=== PATIENT | male | born 1995 | race African-American/Black ===

== ENCOUNTER 2017-08-08 20:42 | Emergency (ER) | payer OTHER ==
[~2017-08-08] VITALS: Ht 180.3 cm; Wt 114.8 kg
[~2017-08-08 20:42] MED LIST: ACETAMINOPHEN-1 EAC1 PO; CARAFATE 1 GM TA1 G1 PO; CELEXA 10 MG TA10 M1; DEPAKOTE; FLAGYL500 MG PO; FLEXERIL PO; GABAPENTIN; HYDROCODONE-AP1 EAC6 PO; HYDROXYZINE; IBUPROFEN 800800 M1 PO; KLONOPIN1 MG PO; LEXAPRO 10 MG T10 MG PO; LITHIUM CARBON300 M6; LORAZEPAM 0.50.5 MG PO; LUNESTA; LUNESTA1 MG PO; NORCO 5-325 TA1 EACH PO; ONDANSETRON HCL4 M2 PO; PAXIL40 MG PO; PHENERGAN 25 MG25 M1 PO; PREVACID; REMERON30 M1 PO; SEROQUEL 50 MG50 MG; SINGULAIR 10 MG10 M1; SINGULAIR 10 MG10 M1 PO; VISTARIL 25 MG25 M1 PO; XANAX XR1 MG PO; XANAX1 MG; ZOFRAN ODT4 MG PO; ZOLOFT50 MG PO; ZYRTEC10 M4 PO
[2017-08-08 21:10] LABS: ABSOLUTE BASOPHILS 0.1 thou/uL (0.0-0.2); ABSOLUTE EOSINOPHILS 0.4 thou/uL (0.0-0.7); ABSOLUTE LYMPHOCYTES 2.6 thou/uL (0.8-5.3); ABSOLUTE MONOCYTES 0.5 thou/uL (0.0-1.2); ABSOLUTE NEUTROPHILS 6.8 thou/uL (1.6-8.1); BASOPHILS 0.7 %; EOSINOPHILS 3.7 %; HEMATOCRIT 44.5 % (42.0-52.0); HEMOGLOBIN 14.9 gm/dL (14.0-18.0); LYMPHOCYTES 24.7 %; MCH 27.3 pg (26.0-34.0); MCHC 33.4 g/dL (28.0-37.0); MCV 81.7 fL (80.0-100.0); MONOCYTES 5.1 %; MPV 8.1 fl. (7.2-11.1); NUCLEATED RBCS 0 /100WBC; PLATELET COUNT* 299 thou/uL (150-400); POLYS 65.8 %; RBC 5.45 mil/uL (4.50-6.00); RDW-CV 13.8 % (10.5-14.5); WBC 10.4 thou/uL (4.0-11.0)
[2017-08-08 21:15] LABS: URINE BILIRUBIN NEGATIVE (Negative); URINE BLOOD NEGATIVE (Negative); URINE CLARITY CLEAR; URINE COLOR YELLOW; URINE GLUCOSE-RANDOM NEGATIVE (Negative); URINE KETONES NEGATIVE (Negative); URINE LEUKOCYTES-REFLEX NEGATIVE (Negative); URINE NITRITE-REFLEX NEGATIVE (Negative); URINE PROTEIN NEGATIVE (Negative); URINE SPECIFIC GRAVITY >= 1.030 (1.005-1.030); URINE UROBILINOGEN 0.2 E.U./dl (0.2-1.0)
[2017-08-08 21:18] LABS: CALCIUM 8.9 mg/dL (8.5-10.1); CREATININE 1.4 mg/dL (0.6-1.3); POTASSIUM 3.8 mmol/L (3.5-5.1)
[2017-08-08 21:23] LABS: ALBUMIN 3.8 g/dL (3.4-5.0); TOTAL BILIRUBIN 0.3 mg/dL (<0.1-1.0); TOTAL PROTEIN 8.1 g/dL (6.4-8.2)
[2017-08-08 21:23] LABS: AMP/METHAMP Negative (Negative); BARBITURATES Negative (Negative); BENZODIAZEPINES Negative (Negative); COCAINE Negative (Negative); METHADONE Negative (Negative); OPIATES Negative (Negative); PCP Negative (Negative); THC Negative (Negative)
[2017-08-08 21:34] LABS: ACETAMINOPHEN < 2 ug/mL (10-30); ALCOHOL < 10 mg/dL (<10); SALICYLATE < 2.8 mg/dL (2.8-20.0)
[2017-08-08] MEDS ORDERED: LEXAPRO 10 MG T10 M1 PO (22:19)
[2017-08-08] MEDS ORDERED: BUSPIRONE HCL5 GM PO (22:19)
[2017-08-08 23:43] VITALS: BP 123/81
== END 2017-08-08 23:55 | disposition home or self-care (01) ==
LOC: M.ERS 20:42
PROVIDERS: Emergency Medicine
DX: F32.9 Major depressive disorder, single episode, unspecified (principal); F41.9 Anxiety disorder, unspecified; F90.9 Attention-deficit hyperactivity disorder, unspecified type; F43.10 Post-traumatic stress disorder, unspecified; F17.210 Nicotine dependence, cigarettes, uncomplicated; Z88.6 Allergy status to analgesic agent; Z88.8 Allergy status to other drugs, medicaments and biological substances

== ENCOUNTER 2017-09-17 00:46 | Emergency (ER) | payer OTHER ==
[~2017-09-17] VITALS: Ht 180.3 cm; Wt 117.5 kg
[~2017-09-17 00:46] MED LIST changes: +BUSPIRONE HCL5 GM PO; +LEXAPRO 10 MG T10 M1 PO
[2017-09-17 00:55] VITALS: BP 126/91
[2017-09-17] MEDS ORDERED: CLONAZEPAM 1 MG1 M1 (00:55)
[2017-09-17] MEDS ORDERED: NORCO 5-325 TA1 EACH PO (01:06)
== END 2017-09-17 01:12 | disposition home or self-care (01) ==
LOC: M.ERS 00:46
DX: K08.89 Other specified disorders of teeth and supporting structures (principal); F31.9 Bipolar disorder, unspecified; F90.9 Attention-deficit hyperactivity disorder, unspecified type; F17.210 Nicotine dependence, cigarettes, uncomplicated; Z88.8 Allergy status to other drugs, medicaments and biological substances; Z88.6 Allergy status to analgesic agent

== ENCOUNTER 2017-12-10 21:34 | Emergency (ER) | payer OTHER ==
[~2017-12-10] VITALS: Ht 180.3 cm; Wt 117.5 kg
[~2017-12-10 21:34] MED LIST changes: +CLONAZEPAM 1 MG1 M1
[2017-12-10] MEDS ORDERED: KLONOPIN (21:40)
[2017-12-10] MEDS ORDERED: CITALOPRAM (21:41)
[2017-12-10 21:42] VITALS: BP 145/99
[2017-12-10] MEDS ORDERED: BACTRIM DS TAB1 EACH PO (21:49)
[2017-12-11] MEDS ORDERED: CYCLOBENZAPRINE5 MG PO (13:47)
[2017-12-11] MEDS ORDERED: DICLOFENAC SOD50 M1 PO (13:47)
== END 2017-12-10 21:55 | disposition home or self-care (01) ==
LOC: M.ERS 21:34
DX: S80.862A Insect bite (nonvenomous), left lower leg, initial encounter (principal); L03.116 Cellulitis of left lower limb; F41.9 Anxiety disorder, unspecified; F31.9 Bipolar disorder, unspecified; F90.9 Attention-deficit hyperactivity disorder, unspecified type; M54.30 Sciatica, unspecified side; F17.210 Nicotine dependence, cigarettes, uncomplicated; Z88.8 Allergy status to other drugs, medicaments and biological substances; W57.XXXA Bitten or stung by nonvenomous insect and other nonvenomous arthropods, initial encounter; Y93.89 Activity, other specified; Y92.89 Other specified places as the place of occurrence of the external cause; Y99.8 Other external cause status

== ENCOUNTER 2017-12-11 13:39 | Emergency (ER) | payer OTHER ==
[~2017-12-11] VITALS: Ht 180.3 cm; Wt 117.5 kg
[~2017-12-11 13:39] MED LIST changes: +BACTRIM DS TAB1 EACH PO; +CITALOPRAM; +KLONOPIN
[2017-12-11] MEDS ORDERED: DICLOFENAC SOD50 M1 PO (13:47)
[2017-12-11] MEDS ORDERED: CYCLOBENZAPRINE5 MG PO (13:47)
[2017-12-11 14:14] VITALS: BP 139/85
== END 2017-12-11 14:14 | disposition home or self-care (01) ==
LOC: M.ERS 13:39
DX: L03.116 Cellulitis of left lower limb (principal); F41.9 Anxiety disorder, unspecified; F31.9 Bipolar disorder, unspecified; M54.30 Sciatica, unspecified side; G89.29 Other chronic pain; F17.210 Nicotine dependence, cigarettes, uncomplicated; Z88.8 Allergy status to other drugs, medicaments and biological substances

== ENCOUNTER 2018-02-26 21:52 | Emergency (ER) | payer OTHER ==
[~2018-02-26] VITALS: Ht 180.3 cm; Wt 117.9 kg
[~2018-02-26 21:52] MED LIST changes: +CYCLOBENZAPRINE5 MG PO; +DICLOFENAC SOD50 M1 PO
[2018-02-26] MEDS ORDERED: PROMETH-CODEIN 65 ML PO (23:55)
[2018-02-26] MEDS ORDERED: MEDROLDOSEPACK PO (23:55)
[2018-02-26] MEDS ORDERED: ZPAK PO (23:55)
[2018-02-26] MEDS ORDERED: VENTOLIN HFA 1818 GM INH (23:55)
[2018-02-27] MEDS ORDERED: ONDANSETRON HCL4 M2 PO (00:01)
[2018-02-27] MEDS ORDERED: NYSTATIN 100,0015 G1 TOP (00:10)
[2018-02-27 00:32] VITALS: BP 145/93
== END 2018-02-27 00:33 | disposition home or self-care (01) ==
LOC: M.ERS 21:52
DX: J20.9 Acute bronchitis, unspecified (principal); B37.2 Candidiasis of skin and nail; F41.9 Anxiety disorder, unspecified; F31.9 Bipolar disorder, unspecified; G89.29 Other chronic pain; F17.210 Nicotine dependence, cigarettes, uncomplicated; F90.9 Attention-deficit hyperactivity disorder, unspecified type; Z88.6 Allergy status to analgesic agent; Z88.8 Allergy status to other drugs, medicaments and biological substances

== ENCOUNTER 2018-03-29 22:40 | Emergency (ER) | payer OTHER ==
[~2018-03-29] VITALS: Ht 180.3 cm; Wt 123.8 kg
[~2018-03-29 22:40] MED LIST changes: +MEDROLDOSEPACK PO; +NYSTATIN 100,0015 G1 TOP; +PROMETH-CODEIN 65 ML PO; +VENTOLIN HFA 1818 GM INH; +ZPAK PO
[2018-03-29] MEDS ORDERED: CELEXA20 MG (22:51)
[2018-03-29] MEDS ORDERED: CLONAZEPAM 1 MG1 M1 (22:52)
[2018-03-29 23:24] LABS: ABSOLUTE EOSINOPHILS 0.3 thou/uL (0.0-0.7); ABSOLUTE MONOCYTES 0.5 thou/uL (0.0-1.2); BASOPHILS 0.5 %; EOSINOPHILS 3.3 %; HEMATOCRIT 44.6 % (42.0-52.0); HEMOGLOBIN 14.8 gm/dL (14.0-18.0); LYMPHOCYTES 30.6 %; MCH 27.2 pg (26.0-34.0); MCHC 33.1 g/dL (28.0-37.0); MCV 82.2 fL (80.0-100.0); MONOCYTES 5.2 %; MPV 8.5 fl. (7.2-11.1); NUCLEATED RBCS 0 /100WBC; PLATELET COUNT* 307 thou/uL (150-400); POLYS 60.4 %; RBC 5.43 mil/uL (4.50-6.00)
[2018-03-29 23:38] LABS: ANION GAP 9 mmol/L (7-16); BUN 11 mg/dL (7-18); CALCIUM 8.8 mg/dL (8.5-10.1); CHLORIDE 104 mmol/L (98-107); CO2 25 mmol/L (21-32); CREATININE 1.1 mg/dL (0.6-1.3); GLUCOSE 139 mg/dL (70-99); POTASSIUM 3.5 mmol/L (3.5-5.1); SODIUM 138 mmol/L (136-145)
[2018-03-29 23:48] LABS: ALBUMIN 3.7 g/dL (3.4-5.0); ALKALINE PHOSPHATASE 102 U/L (46-116); SGOT 11 U/L (15-37); SGPT 20 U/L (30-65); TOTAL BILIRUBIN 0.2 mg/dL (<0.1-1.0); TOTAL PROTEIN 8.1 g/dL (6.4-8.2); TROPONIN-I LEVEL <0.06 ng/mL (<0.06)
[2018-03-30] MEDS ORDERED: PREDNISONE 20 M20 MG PO (00:09)
[2018-03-30] MEDS ORDERED: DICLOFENAC SOD50 M1 PO (00:15)
[2018-03-30 00:59] VITALS: BP 126/83
--- NOTE | 2018-03-31 11:34 | EKG ---
[place] [address] ELECTROCARDIOGRAM REPORT Name: BILLKEYLA Elfego Room: [facility] ([place], [place])Callie#: [id number] Admission: 03/29/18 Attend Phys: Discharge: 03/30/18 Date of : [birth year] Report #: [id number] THIS REPORT FOR: //name// [facility] ED Test Date: 2018-03-29 Test Time: 22:49:24 Pat Name: KEYLA KHAN Department: Room: Gender: M Artists' Model: DEJON : 1995 Requested By: Jaquan Boyer Order Number: [id number] Charli MD: Cisco Ang Measurements Intervals [place] Rate: 97 P: 70 MT: 146 QRS: 33 QRSD: 88 T: 258 QT: 315 QTc: 400 Interpretive Statements Sinus rhythm Nonspecific T abnormalities, diffuse leads Baseline wander in lead(s) V1 Compared to ECG 01/08/2015 20:39:40 No significant changes Electronically Signed On 03-31-2018 11:34:06 SLIP DUMPER by Cisco Ang [email or web address] <ELECTRONICALLY SIGNED> By: Cisco Ang MD, [facility] 03/31/18 1134 2249 224 Cisco Ang MD, FACC /EPI
== END 2018-03-30 01:01 | disposition home or self-care (01) ==
LOC: M.ERS 22:40
PROVIDERS: Physician Assistant
DX: J98.8 Other specified respiratory disorders (principal); B97.89 Other viral agents as the cause of diseases classified elsewhere; F41.9 Anxiety disorder, unspecified; F31.9 Bipolar disorder, unspecified; F90.9 Attention-deficit hyperactivity disorder, unspecified type; G89.29 Other chronic pain; F17.210 Nicotine dependence, cigarettes, uncomplicated; Z88.6 Allergy status to analgesic agent; Z88.8 Allergy status to other drugs, medicaments and biological substances

== ENCOUNTER 2018-04-29 11:30 | Emergency (ER) | payer OTHER ==
[~2018-04-29] VITALS: Ht 180.3 cm; Wt 123.8 kg
[~2018-04-29 11:30] MED LIST changes: +CELEXA20 MG PO; +PREDNISONE 20 M20 MG PO
[2018-04-29] MEDS ORDERED: CLONAZEPAM 1 MG1 M1 PO (11:54)
[2018-04-29] MEDS ORDERED: BUSPIRONE HCL10 MG PO (11:55)
[2018-04-29] MEDS ORDERED: TYLENOL EXTRA500 MG PO (11:55)
[2018-04-29 12:22] LABS: INFLUENZA A ANTIGEN None Detected (None Detect); INFLUENZA B ANTIGEN None Detected (None Detect)
[2018-04-29] MEDS ORDERED: IBUPROFEN 800800 M1 PO (12:29)
[2018-04-29] MEDS ORDERED: PROMETHAZINE V473 ML PO (12:29)
[2018-04-29] MEDS ORDERED: ZPAK PO (12:29)
[2018-04-29] MEDS ORDERED: ACETAMINOPHEN-1 EAC1 PO (12:29)
[2018-04-29 12:42] VITALS: BP 133/79
== END 2018-04-29 12:43 | disposition home or self-care (01) ==
LOC: M.ERS 11:30
PROVIDERS: Physician Assistant
DX: J20.9 Acute bronchitis, unspecified (principal); F41.9 Anxiety disorder, unspecified; F90.9 Attention-deficit hyperactivity disorder, unspecified type; F31.9 Bipolar disorder, unspecified; G89.29 Other chronic pain; F17.210 Nicotine dependence, cigarettes, uncomplicated; Z88.6 Allergy status to analgesic agent; Z88.8 Allergy status to other drugs, medicaments and biological substances

== ENCOUNTER 2018-06-04 23:25 | Emergency (ER) | payer OTHER ==
[~2018-06-04] VITALS: Ht 180.3 cm; Wt 124.7 kg
[~2018-06-04 23:25] MED LIST changes: +BUSPIRONE HCL10 MG PO; +CLONAZEPAM 1 MG1 M1 PO; +PROMETHAZINE V473 ML PO; +TYLENOL EXTRA500 MG PO
[2018-06-04] MEDS ORDERED: ALBUTEROL (23:38)
[2018-06-04] MEDS ORDERED: FLEXERIL PO (23:39)
[2018-06-04] MEDS ORDERED: ZANAFLEX4 MG PO (23:40)
[2018-06-04] MEDS ORDERED: AMOXICILLIN 50500 MG PO (23:57)
[2018-06-04] MEDS ORDERED: TESSALON PERLE100 MG PO (23:57)
[2018-06-04] MEDS ORDERED: PREDNISONE 20 M20 M1 PO (23:59)
[2018-06-05 00:19] VITALS: BP 119/69
== END 2018-06-05 00:19 | disposition home or self-care (01) ==
LOC: M.ERS 23:25
DX: J06.9 Acute upper respiratory infection, unspecified (principal); F41.9 Anxiety disorder, unspecified; F31.9 Bipolar disorder, unspecified; F90.9 Attention-deficit hyperactivity disorder, unspecified type; G89.29 Other chronic pain; F17.210 Nicotine dependence, cigarettes, uncomplicated; Z88.6 Allergy status to analgesic agent; Z88.8 Allergy status to other drugs, medicaments and biological substances

== ENCOUNTER 2018-10-30 22:27 | Emergency (ER) | payer OTHER ==
[~2018-10-30] VITALS: Ht 180.3 cm; Wt 125.2 kg
[~2018-10-30 22:27] MED LIST changes: +ALBUTEROL; +AMOXICILLIN 50500 MG PO; +BENZONATATE200 MG PO; +PREDNISONE 10 M10 M1 PO; +PREDNISONE 20 M20 M1 PO; +TAMIFLU75 MG PO; +TESSALON PERLE100 MG PO; +ZANAFLEX4 MG PO
[2018-10-30] MEDS ORDERED: ZANAFLEX4 MG PO (22:41)
[2018-10-30 23:57] LABS: ABSOLUTE EOSINOPHILS 0.3 thou/uL (0.0-0.7); ABSOLUTE LYMPHOCYTES 2.6 thou/uL (0.8-5.3); ABSOLUTE MONOCYTES 0.5 thou/uL (0.0-1.2); ABSOLUTE NEUTROPHILS 5.7 thou/uL (1.6-8.1); BASOPHILS 0.5 %; EOSINOPHILS 3.5 %; HEMATOCRIT 44.7 % (42.0-52.0); HEMOGLOBIN 14.8 gm/dL (14.0-18.0); LYMPHOCYTES 28.6 %; MCHC 33.2 g/dL (28.0-37.0); MCV 81.3 fL (80.0-100.0); MONOCYTES 5.9 %; NUCLEATED RBCS 0 /100WBC; PLATELET COUNT* 289 thou/uL (150-400); POLYS 61.5 %; RDW-CV 13.8 % (10.5-14.5); WBC 9.3 thou/uL (4.0-11.0)
[2018-10-31 00:01] LABS: POTASSIUM 3.7 mmol/L (3.5-5.1)
[2018-10-31 00:05] LABS: APTT 33.5 Seconds (25.0-31.3); INR 1.1; PROTIME 10.9 Seconds (9.20-11.50)
[2018-10-31] MEDS ORDERED: CENTANY30 GM TOP (00:12)
[2018-10-31] MEDS ORDERED: NABUMETONE 750750 M1 PO (00:12)
[2018-10-31] MEDS ORDERED: AMOXICILLIN 50500 MG PO (00:12)
[2018-10-31 00:19] VITALS: BP 129/80
== END 2018-10-31 00:19 | disposition home or self-care (01) ==
LOC: M.ERS 22:27
PROVIDERS: Nurse Practitioner Family
DX: S00.31XA Abrasion of nose, initial encounter (principal); J06.9 Acute upper respiratory infection, unspecified; R04.0 Epistaxis; R51 Headache; F41.9 Anxiety disorder, unspecified; F31.9 Bipolar disorder, unspecified; F90.9 Attention-deficit hyperactivity disorder, unspecified type; F32.9 Major depressive disorder, single episode, unspecified; G89.29 Other chronic pain; F17.210 Nicotine dependence, cigarettes, uncomplicated; Z88.6 Allergy status to analgesic agent; Z88.8 Allergy status to other drugs, medicaments and biological substances; X58.XXXA Exposure to other specified factors, initial encounter; Y93.89 Activity, other specified; Y92.89 Other specified places as the place of occurrence of the external cause; Y99.8 Other external cause status

== ENCOUNTER 2019-07-07 20:48 | Emergency (ER) | payer OTHER ==
[~2019-07-07] VITALS: Ht 180.3 cm; Wt 127.0 kg
[~2019-07-07 20:48] MED LIST changes: +CENTANY30 GM TOP; +NABUMETONE 750750 M1 PO
[2019-07-07 21:26] VITALS: BP 141/88
== END 2019-07-07 23:22 | disposition left against medical advice (07) ==
LOC: M.ERS 20:48
DX: Z53.21 Procedure and treatment not carried out due to patient leaving prior to being seen by health care provider (principal)

== ENCOUNTER → 2019-09-08 | Outpatient (CLI) | payer OTHER | LOC: M.MRI 11:05 | DX: R90.82 White matter disease, unspecified (principal); F41.9 Anxiety disorder, unspecified; Z87.820 Personal history of traumatic brain injury; R25.3 Fasciculation ==

== ENCOUNTER 2019-09-13 12:54 | Emergency (ER) | payer OTHER ==
[~2019-09-13] VITALS: Ht 180.3 cm; Wt 120.2 kg
[2019-09-13 13:06] VITALS: BP 153/104
[2019-09-13] MEDS ORDERED: NABUMETONE 750750 M1 PO (13:15)
[2019-09-13] MEDS ORDERED: SECURA ANTIFUNG57 GM TOP (13:15)
== END 2019-09-13 13:23 | disposition home or self-care (01) ==
LOC: M.ERS 12:54
DX: L03.311 Cellulitis of abdominal wall (principal); L30.4 Erythema intertrigo; G89.29 Other chronic pain; F41.9 Anxiety disorder, unspecified; F31.9 Bipolar disorder, unspecified; F90.9 Attention-deficit hyperactivity disorder, unspecified type; F17.210 Nicotine dependence, cigarettes, uncomplicated; Z88.6 Allergy status to analgesic agent; Z88.8 Allergy status to other drugs, medicaments and biological substances

== ENCOUNTER 2019-10-20 11:56 | Emergency (ER) | payer OTHER ==
[~2019-10-20] VITALS: Ht 180.3 cm; Wt 124.7 kg
[~2019-10-20 11:56] MED LIST changes: +SECURA ANTIFUNG57 GM TOP
[2019-10-20 12:48] LABS: ABSOLUTE EOSINOPHILS 0.4 thou/uL (0.0-0.7); ABSOLUTE LYMPHOCYTES 2.3 thou/uL (0.8-5.3); ABSOLUTE MONOCYTES 0.5 thou/uL (0.0-1.2); ABSOLUTE NEUTROPHILS 5.6 thou/uL (1.6-8.1); BASOPHILS 0.5 %; EOSINOPHILS 4.6 %; HEMATOCRIT 43.8 % (42.0-52.0); HEMOGLOBIN 14.9 gm/dL (14.0-18.0); LYMPHOCYTES 26.2 %; MCH 27.6 pg (26.0-34.0); MCHC 34.1 g/dL (28.0-37.0); MCV 81.1 fL (80.0-100.0); MONOCYTES 5.2 %; MPV 8.1 fl. (7.2-11.1); NUCLEATED RBCS 0 /100WBC; PLATELET COUNT* 304 thou/uL (150-400); POLYS 63.5 %; RBC 5.41 mil/uL (4.50-6.00); RDW-CV 14.1 % (10.5-14.5); WBC 8.7 thou/uL (4.0-11.0)
[2019-10-20 13:08] LABS: CALCIUM 8.8 mg/dL (8.5-10.1); POTASSIUM 3.8 mmol/L (3.5-5.1)
[2019-10-20 13:17] LABS: URINE BLOOD NEGATIVE (Negative); URINE CLARITY CLEAR; URINE COLOR YELLOW; URINE GLUCOSE-RANDOM NEGATIVE (Negative); URINE KETONES NEGATIVE (Negative); URINE LEUKOCYTES-REFLEX NEGATIVE (Negative); URINE NITRITE-REFLEX NEGATIVE (Negative); URINE PROTEIN 2+ (Negative); URINE SPECIFIC GRAVITY >= 1.030 (1.005-1.030)
[2019-10-20 13:18] LABS: ICTOTEST (BILI CONFIRMATORY) Negative (Negative); URINE BILIRUBIN 1+ (Negative)
[2019-10-20 13:19] LABS: ALBUMIN 3.6 g/dL (3.4-5.0); TOTAL BILIRUBIN 0.3 mg/dL (<0.1-1.0); TOTAL PROTEIN 8.3 g/dL (6.4-8.2)
[2019-10-20] MEDS ORDERED: TYLENOL WITH CO1 TA1 PO (13:38)
--- NOTE | 2019-10-20 16:29 | EKG ---
[place] [address] ELECTROCARDIOGRAM REPORT Name: KEYLA KHAN Room: [facility]#: [id number] Admission: 10/20/19 Attend Phys: Discharge: 10/20/19 Date of : [birth year] Date of Service: 10/20/19 1250 Report #: [id number] THIS REPORT FOR: //name// [facility] ED Test Date: 2019-10-20 Test Time: 12:50:50 Pat Name: KEYLA KHAN Department: Room: Gender: Baggage Porter: [facility] : 1995 Requested By: Lynn Velázquez Order Number: [id number] MD: Jaquan Rodriguez Measurements Intervals [place] Rate: 103 P: 70 [place]: 147 QRS: 41 QRSD: 90 T: 263 QT: 315 QTc: 413 Interpretive Statements Sinus tachycardia Nonspecific T abnormalities, diffuse leads Compared to ECG 03/29/2018 22:49:24 Sinus rate had increased T-wave abnormality still present Electronically Signed On 10-20-2019 16:27:46 CDT by Jaquan Rodriguez [email or web address] <ELECTRONICALLY SIGNED> By: Jaquan Rodriguez MD, [facility] 10/20/19 1627 1250 1250 Jaquan Rodriguez MD, [facility] /EPI
== END 2019-10-20 15:10 | disposition home or self-care (01) ==
LOC: M.ERS 11:56
PROVIDERS: Nurse Practitioner Family
DX: G43.909 Migraine, unspecified, not intractable, without status migrainosus (principal); M54.6 Pain in thoracic spine; B34.9 Viral infection, unspecified; F17.210 Nicotine dependence, cigarettes, uncomplicated; Z88.6 Allergy status to analgesic agent; Z88.8 Allergy status to other drugs, medicaments and biological substances

== ENCOUNTER 2019-12-08 21:45 | Observation (INO) | payer OTHER ==
[~2019-12-08] VITALS: Ht 180.3 cm; Wt 114.8 kg
[~2019-12-08 21:45] MED LIST changes: +TYLENOL WITH CO1 TA1 PO
[2019-12-08 21:52] VITALS: BP 122/82
[2019-12-08] MEDS ORDERED: XANAX1 MG PO (21:58)
[2019-12-08] MEDS ORDERED: CELEXA 20 MG TA20 MG PO (21:58)
[2019-12-08] MEDS ORDERED: ADIPEX-P37.5 MG PO (21:59)
[2019-12-08 22:45] LABS: ABSOLUTE BASOPHILS 0.1 thou/uL (0.0-0.2); ABSOLUTE EOSINOPHILS 0.3 thou/uL (0.0-0.7); ABSOLUTE LYMPHOCYTES 2.6 thou/uL (0.8-5.3); ABSOLUTE MONOCYTES 0.4 thou/uL (0.0-1.2); ABSOLUTE NEUTROPHILS 6.5 thou/uL (1.6-8.1); BASOPHILS 0.6 %; EOSINOPHILS 3.3 %; HEMOGLOBIN 14.9 gm/dL (14.0-18.0); LYMPHOCYTES 26.2 %; MCH 27.4 pg (26.0-34.0); MCHC 33.9 g/dL (28.0-37.0); MCV 80.6 fL (80.0-100.0); MONOCYTES 4.2 %; MPV 8.4 fl. (7.2-11.1); NUCLEATED RBCS 0 /100WBC; PLATELET COUNT* 300 thou/uL (150-400); POLYS 65.7 %; RBC 5.45 mil/uL (4.50-6.00)
[2019-12-08 22:55] LABS: CALCIUM 8.8 mg/dL (8.5-10.1); CREATININE 1.1 mg/dL (0.6-1.3); POTASSIUM 3.4 mmol/L (3.5-5.1)
[2019-12-08 23:06] LABS: ALBUMIN 3.8 g/dL (3.4-5.0); MAGNESIUM 2.2 mg/dL (1.8-2.4); TOTAL BILIRUBIN 0.2 mg/dL (<0.1-1.0); TOTAL PROTEIN 7.9 g/dL (6.4-8.2)
[2019-12-09 04:00] VITALS: BP 99/61
[2019-12-09 07:24] VITALS: BP 105/61
--- NOTE | 2019-12-09 10:43 | EKG ---
[place] [address] ELECTROCARDIOGRAM REPORT Name: KEYLA KHAN Room: [address]R.#: [id number] Admission: 12/08/19 Attend Phys: Marcos Quiñones, Discharge: Date of : [birth year] Date of Service: 12/08/192154 Report #: [id number] THIS REPORT FOR: //name// [facility] ED Test Date: 2019-12-08 Test Time: 21:55:32 Pat Name: KEYLA KHAN Department: Room: [facility] Gender: M Conservation Coordinator: TYLER : 1995 Requested By: Hussain Mcnulty Order Number: [id number] MD: Cisco Ang Measurements Intervals [place] Rate: 111 P: 50 [place]: 145 QRS: 33 QRSD: 92 T: 216 QT: 296 QTc: 402 Interpretive Statements Sinus tachycardia Abnormal T, consider ischemia, diffuse leads Compared to ECG 10/20/2019 12:50:50 no change Electronically Signed On 12-09-2019 10:43:30 CDT by Cisco Ang [email or web address] <ELECTRONICALLY SIGNED> By: Cisco Ang MD, FACC 12/09/19 1043 2155 2155 Cisco Ang MD, [facility] /EPI
[2019-12-09 11:30] VITALS: BP 121/68
[2019-12-09] MEDS ORDERED: XANAX1 MG PO (12:18)
[2019-12-09] MEDS ORDERED: B-12500 MCG PO (12:21)
[2019-12-09 14:57] VITALS: BP 121/68
--- NOTE | 2019-12-09 15:37 | 2DMMODE ---
[place] [address] 2 D/M-MODE ECHOCARDIOGRAM Name: KEYLA KHAN Room: [address] M.R.#: [id number] Admission: 12/08/19 Attend Phys: Marcos Quiñones, Discharge: Date of : [birth year] Date of Service: 12/09/19 1536 Report #: [id number] THIS REPORT FOR: cc: Nixon Haddad,Nixon Villalobos,Cisco Ferreira MD [facility] ~ APPROVED REPORT Study performed: 12/09/2019 11:23:49 EXAM: Comprehensive 2D, Doppler, and color-flow Echocardiogram Patient Location: In-Patient Room #: ER Status: routine BSA: 2.36 HR: 73 bpm BP: 105/61 mmHg Rhythm: NSR Other Information Study Quality: Good Indications Chest Pain 2D Dimensions IVSd: 10.43 (7-11mm) LVOT Diam: 21.31 (18-24mm) LVDd: 43.36 mm PWd: 9.07 (7-11mm) Ascending Ao: 27.70 (22-36mm) LVDs: 28.08 (25-40mm) Aortic Root: 30.27 mm Volumes Left Atrial Volume (Systole) LA ESV Index: 17.10 mL/m2 Aortic Valve AoV Peak Christian.: 0.90 m/s AO Peak Gr.: 3.22 mmHg LVOT Max P.89 mmHg AO Mean Gr.: 1.96 mmHg LVOT Mean P.59 mmHg LVOT Max V: 0.85 m/s AO V2 VTI: 15.08 cm LVOT Mean V: 0.59 m/s PRANAV (VTI): 4.01 cm2 LVOT V1 VTI: 16.93 [place] [address] 2 D/M-MODE ECHOCARDIOGRAM Name: KEYLA KHAN Room: [address]#: [id number] Admission: 12/08/19 Attend Phys: Marcos Quiñones, Discharge: Date of : [birth year] Date of Service: 12/09/19 1536 Report #: [id number] Mitral Valve E/A Ratio: 1.55 MV Decel. Time: 192.69 ms MV E Max Christian.: 0.74 m/s MV PHT: 55.88 ms MVA (PHT): 3.94 cm2 TDI E/Lateral E': 4.93 E/Medial E': 5.69 Medial E' Christian.: 0.13 m/s Lateral E' Christian.: 0.15 m/s Pulmonary Valve PV Peak Christian.: 0.87 m/s PV Peak Gr.: 3.01 mmHg Left Ventricle The left ventricle is normal size. There is normal LV segmental wall motion. There is normal left ventricular wall thickness. Left ventricular systolic function is normal. The left ventricular ejection fraction is within the normal range. LVEF is 50-55%. The left ventricular diastolic function is normal. Right Ventricle The right ventricle is normal size. The right ventricular systolic function is normal. Atria The left atrium size is normal. The right atrium size is normal. Aortic Valve The aortic valve is normal in structure. No aortic regurgitation is present. There is no aortic valvular stenosis. Mitral Valve The mitral valve is normal in structure. There is no mitral valve regurgitation noted. No evidence of mitral valve stenosis. Tricuspid Valve The tricuspid valve is normal in structure. Unable to assess PA pressure. Trace tricuspid regurgitation. Pulmonic Valve The pulmonary valve is normal in structure. There is no pulmonic [place] [address] 2 D/M-MODE ECHOCARDIOGRAM Name: KEYLA KHAN Room: [address]#: [id number] Admission: 12/08/19 Attend Phys: Marcos Quiñones, Discharge: Date of : [birth year] Date of Service: 12/09/19 1536 Report #: [id number] Great Vessels The aortic root is normal in size. IVC is normal in size and collapses >50% with inspiration. Pericardium There is no pericardial effusion. <Conclusion> Left ventricular systolic function is normal. The left ventricular ejection fraction is within the normal range. There is no pericardial effusion. <ELECTRONICALLY SIGNED> By: Cisco Ang MD, [facility] 12/09/19 1536 1536 1536 Cisco Ang MD, FAC /INF
[2019-12-09 20:00] VITALS: BP 117/63
[2019-12-10] VITALS: BP 114/55
[2019-12-10 04:00] VITALS: BP 115/55
[2019-12-10 08:00] VITALS: BP 104/56
[2019-12-10] MEDS ORDERED: IBUPROFEN 600600 M1 PO (08:31)
[2019-12-10 08:52] LABS: CHOLESTEROL 171 mg/dL (<200); HDL CHOLESTEROL 30 mg/dL (>40); LDL CHOLESTEROL 117 mg/dL (<100); TC:HDL 5.7 Ratio (Not establshd); TRIGLYCERIDE 122 mg/dL (<150); VLDL 24 mg/dL (<40)
[2019-12-10 08:53] LABS: SERUM ASSESSMENT Clear
[2019-12-10 10:04] VITALS: BP 104/56
--- NOTE | 2019-12-10 13:03 | EKG ---
[place] [address] ELECTROCARDIOGRAM REPORT Name: GEORGEKEYLA PABLO Room: [address]#: [id number] Admission: 12/08/19 Attend Phys: Marcos Quiñones, Discharge: 12/10/19 Date of : [birth year] Date of Service: 12/10/19 0756 Report #: [id number] THIS REPORT FOR: //name// [facility] Test Date: 2019-12-10 Test Time: 07:56:50 Pat Name: KEYLA KHAN Department: Room: [facility] Gender: M Supervisor Decorating: VFGBN : 1995 Requested By: Cisco Ang Order Number: [id number] Charli MD: Ozzy Dya Measurements Intervals [place] Rate: 67 P: 39 [place]: 161 QRS: 47 QRSD: 84 T: -87 QT: 362 QTc: 382 Interpretive Statements Sinus rhythm Nonspecific T abnormalities, diffuse leads Compared to ECG 12/08/2019 21:55:32 Sinus tachycardia no longer present Possible ischemia no longer present T-wave abnormality still present Electronically Signed On 12-10-2019 13:02:58 CDT by Ozzy Day [email or web address] <ELECTRONICALLY SIGNED> By: Ozzy Day MD, FAC 12/10/19 1302 0756 0756 Ozzy Day MD, FAC /EPI
--- NOTE | 2019-12-11 14:43 | CON ---
[address] [address] CONSULTATION Name: KEYLA KHAN Room: [address] Margaux Alanis#: [id number] Admission: 12/08/19 Attend Phys: Marcos Quiñones MD Discharge: 12/10/19 Date of : [birth year] Report #: [id number] THIS REPORT FOR: //name// cc: Nixon Haddad DO Nixon Haddad DO ~ THIS REPORT FOR: //name// CC: Nixon Quiñones DATE OF SERVICE: 12/09/2019 CARDIOLOGY CONSULTATION HISTORY OF PRESENT ILLNESS: The patient is a 24-year-old single male who I was asked to see in the Emergency Room today after he complained of chest pain. The patient has had several visits here to [place] in the past. He apparently has never been hospitalized. He is not very active at this time. He was doing well until yesterday, he was at home when he felt a sharp pain in his chest, he felt tingling, lightheaded, short of breath. He came to the Emergency Room and was admitted. I am asked to see him for further evaluation and treatment. He denied the pain being related to food or exertion. There is no radiation of the pain. Denied trauma to his chest. He has been coughing. The pain seemed to be worse if he coughed or leaned forward. He denies exertional dyspnea, palpitations, syncope or peripheral edema. PAST MEDICAL HISTORY: He has had no surgical procedures. He had a colonoscopy in the past, told he had an allergic reaction. He has had high blood pressure in the past. He has a history of manic depressive illness and sees a psychiatrist. He has been diagnosed with bipolar disorder, and chronic back pain. CURRENT MEDICATIONS: Include clonazepam, Xanax, Celexa, phentermine in an effort to lose weight. ALLERGIES: HE HAS A PREVIOUS INTOLERANCE TO TRAMADOL AND ZOLOFT. FAMILY HISTORY: Negative for heart disease. SOCIAL HISTORY: He is single, lives in [place], [place] with some friends. 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 Smokes half pack of cigarettes a day. No alcohol. He has a medical marijuana license for depression. REVIEW OF SYSTEMS: He is overweight, being 5 feet 8 inches, 260 pounds. No history of stroke, asthma, liver disease, kidney disease, cancer, chronic skin condition. He [place] [address] CONSULTATION Name: KEYLA KHAN [address] [id number] Admission: 12/08/19 Attend Phys: Marcos Quiñones MD Discharge: 12/10/19 Date of : [birth year] Report #: [id number] PHYSICAL EXAMINATION: GENERAL: Revealed a young male who appeared in no distress. VITAL SIGNS: He had a blood pressure of 120/80, pulse is 90, he is afebrile. HEENT: He was anicteric. Conjunctivae are pink. Mucous membranes moist. NECK: Veins do not appear distended. CHEST: Clear to auscultation. CARDIOVASCULAR: Regular rate and rhythm without murmur or rub. ABDOMEN: Obese. EXTREMITIES: Had no edema. Posterior pulse 2+ bilaterally. SKIN: Cool and dry. NEUROLOGIC: Nonfocal. DIAGNOSTIC DATA: His ECG last night showed a sinus tachycardia, nonspecific T-wave changes. His workup included x-rays that showed normal heart size and clear lung meade. He actually had a CT scan of the head in September because of a headache that is unremarkable. LABORATORY WORK: Sodium 135, potassium 3.4, creatinine 1.1. Liver function studies were normal. Troponins all 0.06. BNP 6. White blood cell count 10.0, hemoglobin 14.9. IMPRESSION AND RECOMMENDATIONS: 1. Chest pain. There is no rub to suggest pericarditis. Chest x-ray is unremarkable. Possible bronchitis. Recommend conservative approach. I would check echocardiogram. 2. Manic depressive illness. 3. Tobacco abuse. <ELECTRONICALLY SIGNED> By: Cisco Ang MD, FACC 12/11/19 1443 1349 1404Dluis eduardo Ang MD, FACC /nt
== END 2019-12-10 11:40 | disposition home or self-care (01) ==
LOC: M.ERS 21:45 → M.TBA-ER 23:51 → M.2W 12-09 15:00
PROVIDERS: Emergency Medicine Emergency Medical Services; Internal Medicine Cardiovascular Disease; ADMIT Internal Medicine; ATTEND Internal Medicine
DX: Z03.818 Encounter for observation for suspected exposure to other biological agents ruled out (principal); M94.0 Chondrocostal junction syndrome [Tietze]; F31.9 Bipolar disorder, unspecified; F90.9 Attention-deficit hyperactivity disorder, unspecified type; I10 Essential (primary) hypertension

== ENCOUNTER 2019-12-16 21:41 | Emergency (ER) | payer OTHER ==
[~2019-12-16] VITALS: Ht 180.3 cm; Wt 117.9 kg
[~2019-12-16 21:41] MED LIST changes: +ADIPEX-P37.5 MG PO; +B-12500 MCG PO; +CELEXA 20 MG TA20 MG PO; +IBUPROFEN 600600 M1 PO; +XANAX1 MG PO
[2019-12-16] MEDS ORDERED: OLANZAPINE ODT5 MG PO (21:48)
[2019-12-16 22:44] LABS: ABSOLUTE BASOPHILS 0.1 thou/uL (0.0-0.2); ABSOLUTE EOSINOPHILS 0.4 thou/uL (0.0-0.7); ABSOLUTE LYMPHOCYTES 2.8 thou/uL (0.8-5.3); ABSOLUTE MONOCYTES 0.6 thou/uL (0.0-1.2); ABSOLUTE NEUTROPHILS 4.9 thou/uL (1.6-8.1); BASOPHILS 0.9 %; EOSINOPHILS 5.1 %; HEMATOCRIT 43.8 % (42.0-52.0); HEMOGLOBIN 14.9 gm/dL (14.0-18.0); LYMPHOCYTES 31.5 %; MCH 27.7 pg (26.0-34.0); MCHC 33.9 g/dL (28.0-37.0); MCV 81.8 fL (80.0-100.0); MONOCYTES 6.8 %; MPV 8.5 fl. (7.2-11.1); NUCLEATED RBCS 0 /100WBC; PLATELET COUNT* 263 thou/uL (150-400); POLYS 55.7 %; RBC 5.36 mil/uL (4.50-6.00); RDW-CV 14.2 % (10.5-14.5); WBC 8.8 thou/uL (4.0-11.0)
[2019-12-16 22:52] LABS: CALCIUM 8.3 mg/dL (8.5-10.1); CREATININE 1.2 mg/dL (0.6-1.3); POTASSIUM 3.4 mmol/L (3.5-5.1)
[2019-12-16 22:56] LABS: ALBUMIN 3.9 g/dL (3.4-5.0); PROTIME 10.7 Seconds (9.20-11.50); TOTAL BILIRUBIN 0.2 mg/dL (<0.1-1.0); TOTAL PROTEIN 7.7 g/dL (6.4-8.2)
[2019-12-17 00:11] LABS: URINE BILIRUBIN NEGATIVE (Negative); URINE BLOOD NEGATIVE (Negative); URINE CLARITY CLEAR; URINE COLOR YELLOW; URINE GLUCOSE-RANDOM 1+ (Negative); URINE KETONES TRACE (Negative); URINE LEUKOCYTES-REFLEX NEGATIVE (Negative); URINE NITRITE-REFLEX NEGATIVE (Negative); URINE PROTEIN NEGATIVE (Negative); URINE SPECIFIC GRAVITY 1.025 (1.005-1.030)
[2019-12-17] MEDS ORDERED: MEDROLDOSEPACK PO (00:44)
[2019-12-17 00:58] VITALS: BP 153/73
--- NOTE | 2019-12-17 13:23 | EKG ---
[place] [address] ELECTROCARDIOGRAM REPORT Name: GEORGEKYELA PABLO Elfego Room: 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: : 1995 Requested By: Edda Salcedo Order Number: [id number] MD: Ozzy Day Measurements Intervals [place] Rate: 106 P: 65 PA: 113 QRS: 40 QRSD: 88 T: 238 QT: 307 QTc: 408 Interpretive Statements Sinus tachycardia Nonspecific T abnormalities, diffuse leads Baseline wander in lead(s) V1 Compared to ECG 12/10/2019 07:56:50 Sinus rhythm no longer present T-wave abnormality still present Electronically Signed On 12-17-2019 13:22:58 CDT by Ozzy Day [email or web address] <ELECTRONICALLY SIGNED> By: Ozzy Day MD, FACC 12/17/19 1322 2149 Ozzy Day MD, [facility] /EPI
== END 2019-12-17 00:58 | disposition home or self-care (01) ==
LOC: M.ERS 21:41
PROVIDERS: Personal Emergency Response Attendant
DX: B34.9 Viral infection, unspecified (principal); M94.0 Chondrocostal junction syndrome [Tietze]; Z20.828 Contact with and (suspected) exposure to other viral communicable diseases; G89.29 Other chronic pain; F17.210 Nicotine dependence, cigarettes, uncomplicated; Z88.6 Allergy status to analgesic agent; Z88.8 Allergy status to other drugs, medicaments and biological substances

== ENCOUNTER 2019-12-30 11:33 | Emergency (ER) | payer OTHER ==
[~2019-12-30] VITALS: Ht 180.3 cm; Wt 120.2 kg
[~2019-12-30 11:33] MED LIST changes: +OLANZAPINE ODT5 MG PO
[2019-12-30 12:39] VITALS: BP 136/94
== END 2019-12-30 12:40 | disposition home or self-care (01) ==
LOC: M.ERS 11:33
DX: J06.9 Acute upper respiratory infection, unspecified (principal); Z20.828 Contact with and (suspected) exposure to other viral communicable diseases; G89.29 Other chronic pain; F17.210 Nicotine dependence, cigarettes, uncomplicated; Z88.6 Allergy status to analgesic agent; Z88.8 Allergy status to other drugs, medicaments and biological substances

== ENCOUNTER 2020-04-01 20:30 | Emergency (ER) | payer OTHER ==
[~2020-04-01] VITALS: Ht 180.3 cm; Wt 117.9 kg
[2020-04-01] MEDS ORDERED: VIIBRYD20 MG PO (20:45)
[2020-04-01 21:17] LABS: INFLUENZA A ANTIGEN Negative (Negative); INFLUENZA B ANTIGEN Negative (Negative)
[2020-04-01 21:48] VITALS: BP 144/84
== END 2020-04-01 21:48 | disposition home or self-care (01) ==
LOC: M.ERS 20:30
PROVIDERS: Personal Emergency Response Attendant
DX: B34.9 Viral infection, unspecified (principal); Z20.828 Contact with and (suspected) exposure to other viral communicable diseases; F17.210 Nicotine dependence, cigarettes, uncomplicated; Z79.899 Other long term (current) drug therapy; Z88.8 Allergy status to other drugs, medicaments and biological substances; Z88.6 Allergy status to analgesic agent

== ENCOUNTER 2020-04-07 12:03 | Emergency (ER) | payer OTHER ==
[~2020-04-07] VITALS: Ht 180.3 cm; Wt 120.2 kg
[~2020-04-07 12:03] MED LIST changes: +VIIBRYD20 MG PO
[2020-04-07] MEDS ORDERED: CELEXA 20 MG TA20 MG PO (12:15)
[2020-04-07] MEDS ORDERED: TRILEPTAL300 MG PO (12:16)
[2020-04-07 12:37] LABS: ABSOLUTE EOSINOPHILS 0.2 thou/uL (0.0-0.7); ABSOLUTE LYMPHOCYTES 2.3 thou/uL (0.8-5.3); ABSOLUTE MONOCYTES 0.4 thou/uL (0.0-1.2); ABSOLUTE NEUTROPHILS 5.7 thou/uL (1.6-8.1); BASOPHILS 0.6 %; EOSINOPHILS 2.8 %; HEMATOCRIT 45.7 % (42.0-52.0); HEMOGLOBIN 15.4 gm/dL (14.0-18.0); LYMPHOCYTES 26.4 %; MCH 27.2 pg (26.0-34.0); MCHC 33.6 g/dL (28.0-37.0); MONOCYTES 4.6 %; MPV 7.4 fl. (7.2-11.1); NUCLEATED RBCS 0 /100WBC; PLATELET COUNT* 273 thou/uL (150-400); POLYS 65.6 %; RBC 5.64 mil/uL (4.50-6.00); RDW-CV 14.5 % (10.5-14.5); WBC 8.7 thou/uL (4.0-11.0)
[2020-04-07 12:56] LABS: CALCIUM 8.6 mg/dL (8.5-10.1); POTASSIUM 3.9 mmol/L (3.5-5.1)
[2020-04-07 12:58] LABS: ALBUMIN 3.8 g/dL (3.4-5.0); TOTAL BILIRUBIN 0.3 mg/dL (<0.1-1.0); TOTAL PROTEIN 8.1 g/dL (6.4-8.2)
[2020-04-07 14:14] VITALS: BP 130/72
--- NOTE | 2020-04-07 16:32 | EKG ---
[place] [address] ELECTROCARDIOGRAM REPORT Name: KEYLA KHAN Room: [facility]#: [id number] Admission: 04/07/20 Attend Phys: Discharge: 04/07/20 Date of : [birth year] Date of Service: 04/07/20 1210 Report #: [id number] THIS REPORT FOR: //name// [facility] ED Test Date: 2020-04-07 Test Time: 12:10:59 Pat Name: KEYLA KHAN Department: Room: Gender: Ware Cleaner: [facility] : 1995 Requested By: Андрей Duncan Order Number: [id number] MD: Jaquan Rodriguez Measurements Intervals [place] Rate: 94 P: 65 [place]: 150 QRS: 38 QRSD: 84 T: -88 QT: 331 QTc: 414 Interpretive Statements Sinus rhythm Nonspecific T abnormalities, diffuse leads Baseline wander in lead(s) V3 Compared to ECG 12/16/2019 21:49:58 Sinus tachycardia no longer present T-wave abnormality still present Electronically Signed On 04-07-2020 16:32:52 BUILDING ASSOCIATE by Jaquan Rodriguez [email or web address] <ELECTRONICALLY SIGNED> By: Jaquan Rodriguez MD, FACC 04/07/20 1632 1210 1210 Jaquan Rodriguez MD, [facility] /EPI
== END 2020-04-07 14:15 | disposition home or self-care (01) ==
LOC: M.ERS 12:03
PROVIDERS: Physician Assistant
DX: R07.9 Chest pain, unspecified (principal); Z20.828 Contact with and (suspected) exposure to other viral communicable diseases; R06.02 Shortness of breath; R51.9 Headache, unspecified; F17.210 Nicotine dependence, cigarettes, uncomplicated; Z79.899 Other long term (current) drug therapy; Z88.8 Allergy status to other drugs, medicaments and biological substances

== ENCOUNTER 2020-04-25 13:38 | Emergency (ER) | payer OTHER ==
[~2020-04-25] VITALS: Ht 180.3 cm; Wt 120.2 kg
[~2020-04-25 13:38] MED LIST changes: +TRILEPTAL300 MG PO
[2020-04-25 16:22] VITALS: BP 141/91
== END 2020-04-25 16:22 | disposition home or self-care (01) ==
LOC: M.ERS 13:38
DX: B34.9 Viral infection, unspecified (principal); Z20.828 Contact with and (suspected) exposure to other viral communicable diseases; I10 Essential (primary) hypertension; G47.30 Sleep apnea, unspecified; G89.29 Other chronic pain; F17.210 Nicotine dependence, cigarettes, uncomplicated; Z88.6 Allergy status to analgesic agent; Z88.8 Allergy status to other drugs, medicaments and biological substances

== ENCOUNTER 2020-04-27 11:30 | Emergency (ER) | payer OTHER ==
[~2020-04-27] VITALS: Ht 180.3 cm; Wt 120.2 kg
[2020-04-27 12:20] LABS: ABSOLUTE EOSINOPHILS 0.4 thou/uL (0.0-0.7); ABSOLUTE LYMPHOCYTES 2.4 thou/uL (0.8-5.3); ABSOLUTE MONOCYTES 0.4 thou/uL (0.0-1.2); ABSOLUTE NEUTROPHILS 3.5 thou/uL (1.6-8.1); BASOPHILS 0.5 %; EOSINOPHILS 5.6 %; HEMATOCRIT 44.6 % (42.0-52.0); HEMOGLOBIN 14.9 gm/dL (14.0-18.0); LYMPHOCYTES 36.1 %; MCH 26.8 pg (26.0-34.0); MCHC 33.3 g/dL (28.0-37.0); MCV 80.4 fL (80.0-100.0); MONOCYTES 5.4 %; MPV 7.8 fl. (7.2-11.1); NUCLEATED RBCS 0 /100WBC; PLATELET COUNT* 264 thou/uL (150-400); POLYS 52.4 %; RBC 5.55 mil/uL (4.50-6.00); RDW-CV 14.5 % (10.5-14.5); WBC 6.7 thou/uL (4.0-11.0)
[2020-04-27 12:28] LABS: CALCIUM 8.5 mg/dL (8.5-10.1); POTASSIUM 3.9 mmol/L (3.5-5.1)
[2020-04-27 12:32] LABS: INFLUENZA A ANTIGEN Negative (Negative); INFLUENZA B ANTIGEN Negative (Negative)
[2020-04-27 12:32] LABS: ALBUMIN 3.6 g/dL (3.4-5.0); TOTAL BILIRUBIN 0.3 mg/dL (<0.1-1.0); TOTAL PROTEIN 8.1 g/dL (6.4-8.2)
[2020-04-27] MEDS ORDERED: ZPAK PO (13:01)
[2020-04-27 13:19] VITALS: BP 138/72
--- NOTE | 2020-04-27 16:43 | EKG ---
[place] [address] ELECTROCARDIOGRAM REPORT Name: KEYLA KHAN Room: [facility]#: [id number] Admission: 04/27/20 Attend Phys: Discharge: 04/27/20 Date of : [birth year] Date of Service: 04/27/20 1159 Report #: [id number] THIS REPORT FOR: //name// [facility] ED Test Date: 2020-04-27 Test Time: 11:59:57 Pat Name: KEYLA KHAN Department: Room: Gender: Mental Health Clinician: EVA : 1995 Requested By: Hussain Mcnulty Order Number: [id number] MD: Cisco Ang Measurements Intervals [place] Rate: 84 P: 67 [place]: 147 QRS: 43 QRSD: 89 T: 15 QT: 351 QTc: 415 Interpretive Statements Sinus rhythm Borderline T wave abnormalities Baseline wander in lead(s) V5 Compared to ECG 04/07/2020 12:10:59 No significant changes Electronically Signed On 04-27-2020 16:43:04 GUITAR REPAIRER by Cisco Ang [email or web address] <ELECTRONICALLY SIGNED> By: Cisco Ang MD, FAC 04/27/20 1643 1159 1159 Cisco Ang MD, [facility] /EPI
== END 2020-04-27 13:20 | disposition home or self-care (01) ==
LOC: M.ERS 11:30
PROVIDERS: Emergency Medicine Emergency Medical Services
DX: J18.9 Pneumonia, unspecified organism (principal); Z20.828 Contact with and (suspected) exposure to other viral communicable diseases; I10 Essential (primary) hypertension; F17.210 Nicotine dependence, cigarettes, uncomplicated; Z79.899 Other long term (current) drug therapy; Z88.8 Allergy status to other drugs, medicaments and biological substances; Z88.6 Allergy status to analgesic agent

== ENCOUNTER 2020-09-21 20:54 | Emergency (ER) | payer OTHER ==
[~2020-09-21] VITALS: Ht 180.3 cm; Wt 126.1 kg
[2020-09-21] MEDS ORDERED: CLONAZEPAM 1 MG1 M1 PO (21:04)
[2020-09-21 21:26] LABS: ABSOLUTE BASOPHILS 0.1 thou/uL (0.0-0.2); ABSOLUTE EOSINOPHILS 0.5 thou/uL (0.0-0.7); ABSOLUTE LYMPHOCYTES 2.9 thou/uL (0.8-5.3); ABSOLUTE MONOCYTES 0.6 thou/uL (0.0-1.2); ABSOLUTE NEUTROPHILS 8.5 thou/uL (1.6-8.1); BASOPHILS 1.1 %; EOSINOPHILS 3.9 %; HEMATOCRIT 45.4 % (42.0-52.0); LYMPHOCYTES 22.8 %; MCH 26.9 pg (26.0-34.0); MCV 81.4 fL (80.0-100.0); MONOCYTES 4.9 %; MPV 8.3 fl. (7.2-11.1); NUCLEATED RBCS 0 /100WBC; PLATELET COUNT* 272 thou/uL (150-400); POLYS 67.3 %; RBC 5.58 mil/uL (4.50-6.00); RDW-CV 14.4 % (10.5-14.5); WBC 12.7 thou/uL (4.0-11.0)
[2020-09-21 21:33] LABS: CALCIUM 8.8 mg/dL (8.5-10.1); CREATININE 1.1 mg/dL (0.6-1.3); POTASSIUM 3.6 mmol/L (3.5-5.1)
[2020-09-21 21:37] LABS: ALBUMIN 3.7 g/dL (3.4-5.0); TOTAL BILIRUBIN 0.4 mg/dL (<0.1-1.0); TOTAL PROTEIN 8.3 g/dL (6.4-8.2)
[2020-09-21] MEDS ORDERED: PEPCID20 MG PO ×2 (23:31→23:33)
[2020-09-21] MEDS ORDERED: ONDANSETRON HCL4 M2 PO ×2 (23:31→23:33)
[2020-09-21 23:51] VITALS: BP 114/67
--- NOTE | 2020-09-22 11:01 | EKG ---
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: : 1995 Requested By: Anyi Gerardo Order Number: [id number] MD: Cisco Ang Measurements Intervals [place] Rate: 114 P: 64 [place]: 146 QRS: 49 QRSD: 84 T: 253 QT: 356 QTc: 491 Interpretive Statements Sinus tachycardia Probable left atrial enlargement Borderline repolarization abnormality Prolonged QT interval Baseline wander in lead(s) I Compared to ECG 04/27/2020 11:59:57 Prolonged QT interval now present Sinus rhythm no longer present Electronically Signed On 09-22-2020 11:00:54 CDT by Cisco Ang [email or web address] <ELECTRONICALLY SIGNED> By: Cisco Ang MD, FAC 09/22/201099 58 58 Cisco Ang MD, [facility] /EPI
== END 2020-09-21 23:51 | disposition home or self-care (01) ==
LOC: M.ERS 20:54
PROVIDERS: Emergency Medicine
DX: R11.10 Vomiting, unspecified (principal); I10 Essential (primary) hypertension; F17.210 Nicotine dependence, cigarettes, uncomplicated; Z79.899 Other long term (current) drug therapy

== ENCOUNTER 2020-12-11 09:56 | Emergency (ER) | payer OTHER ==
[~2020-12-11] VITALS: Ht 180.3 cm; Wt 126.1 kg
[~2020-12-11 09:56] MED LIST changes: +PEPCID20 MG PO
[2020-12-11] MEDS ORDERED: DEXAMETHASONE 44 M1 PO (10:40)
[2020-12-11] MEDS ORDERED: ZOFRAN ODT4 MG DISSOLVE (10:40)
[2020-12-11] MEDS ORDERED: ZPAK PO (10:40)
[2020-12-11] MEDS ORDERED: IBUPROFEN 800800 MG PO (10:40)
[2020-12-11 10:55] VITALS: BP 130/73
--- NOTE | 2020-12-12 09:59 | EKG ---
[place] [address] ELECTROCARDIOGRAM REPORT Name: KEYLA KHAN Room: [facility]#: [id number] Admission: 12/11/20 Attend Phys: Discharge: 12/11/20 Date of : [birth year] Date of Service: 12/11/20 [facility] Report #: [id number] THIS REPORT FOR: //name// [facility] ED Test Date: 2020-12-11 Test Time: 10:02:44 Pat Name: KEYLA KHAN Department: Room: Gender: Power Bender Operator: [facility] : 1995 Requested By: Guillermo Tovar Order Number: [id number] MD: Cisco Ang Measurements Intervals [place] Rate: 115 P: 56 [place]: 137 QRS: 34 QRSD: 85 T: -75 QT: 268 QTc: 371 Interpretive Statements Sinus tachycardia Borderline T abnormalities, diffuse leads Baseline wander in lead(s) II,III,aVF,V2 Compared to ECG 09/21/2020 20:59:52 Prolonged QT interval no longer present Electronically Signed On 12-12-2020 9:59:01 CDT by Cisco Ang [email or web address] <ELECTRONICALLY SIGNED> By: Cisco Ang MD, FAC 12/12/20 0959 1002 1002 Cisco Ang MD, [facility] /EPI
== END 2020-12-11 10:56 | disposition home or self-care (01) ==
LOC: M.ERS 09:56
DX: U07.1 COVID-19 (principal); I10 Essential (primary) hypertension; G89.29 Other chronic pain; F17.210 Nicotine dependence, cigarettes, uncomplicated; Z79.899 Other long term (current) drug therapy; Z88.6 Allergy status to analgesic agent; Z88.8 Allergy status to other drugs, medicaments and biological substances

== ENCOUNTER 2020-12-12 20:53 | Emergency (ER) | payer OTHER ==
[~2020-12-12] VITALS: Ht 180.3 cm; Wt 126.1 kg
[~2020-12-12 20:53] MED LIST changes: +DEXAMETHASONE 44 M1 PO; +IBUPROFEN 800800 MG PO; +ZOFRAN ODT4 MG DISSOLVE
[2020-12-12 21:53] LABS: ABSOLUTE LYMPHOCYTES 1.1 thou/uL (0.8-5.3); ABSOLUTE MONOCYTES 0.4 thou/uL (0.0-1.2); ABSOLUTE NEUTROPHILS 4.2 thou/uL (1.6-8.1); BASOPHILS 0.4 %; EOSINOPHILS 0.1 %; HEMATOCRIT 41.9 % (42.0-52.0); HEMOGLOBIN 14.3 gm/dL (14.0-18.0); LYMPHOCYTES 19.5 %; MCH 28.1 pg (26.0-34.0); MCHC 34.1 g/dL (28.0-37.0); MCV 82.6 fL (80.0-100.0); MONOCYTES 7.4 %; MPV 8.4 fl. (7.2-11.1); NUCLEATED RBCS 0 /100WBC; PLATELET COUNT* 213 thou/uL (150-400); POLYS 72.6 %; RBC 5.07 mil/uL (4.50-6.00); RDW-CV 14.6 % (10.5-14.5); WBC 5.8 thou/uL (4.0-11.0)
[2020-12-12 22:01] LABS: CALCIUM 8.1 mg/dL (8.5-10.1); CREATININE 1.1 mg/dL (0.6-1.3); POTASSIUM 4.4 mmol/L (3.5-5.1)
[2020-12-12 22:06] LABS: ALBUMIN 3.5 g/dL (3.4-5.0); TOTAL BILIRUBIN 0.2 mg/dL (<0.1-1.0)
[2020-12-12 22:23] LABS: TOTAL PROTEIN 8.1 g/dL (6.4-8.2)
[2020-12-13] MEDS ORDERED: HYDROCODON-ACE1 EAC8 PO (02:19)
[2020-12-13 02:47] VITALS: BP 114/59
--- NOTE | 2020-12-13 12:01 | EKG ---
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 Distributor: MELISSA : 1995 Requested By: Christian Rowan Order Number: [id number] MD: Ozzy Day Measurements Intervals [place] Rate: 98 P: 62 [place]: 146 QRS: 44 QRSD: 82 T: -32 QT: 312 QTc: 399 Interpretive Statements Sinus rhythm Borderline T abnormalities, diffuse leads Compared to ECG 12/11/2020 10:02:44 Sinus tachycardia no longer present T-wave abnormality still present Electronically Signed On 12-13-2020 12:01:22 CDT by Ozzy Day [email or web address] <ELECTRONICALLY SIGNED> By: Ozzy Day MD, FACC 12/13/20 1201 27 27 Ozzy Day MD, [facility] /EPI
== END 2020-12-13 02:47 | disposition home or self-care (01) ==
LOC: M.ERS 20:53
PROVIDERS: Nurse Practitioner Psychiatric/Mental Health
DX: U07.1 COVID-19 (principal); I10 Essential (primary) hypertension; G89.29 Other chronic pain; F17.210 Nicotine dependence, cigarettes, uncomplicated; Z79.899 Other long term (current) drug therapy; Z88.8 Allergy status to other drugs, medicaments and biological substances; Z88.6 Allergy status to analgesic agent

== ENCOUNTER 2020-12-22 13:59 | Emergency (ER) | payer OTHER ==
[~2020-12-22] VITALS: Ht 180.3 cm; Wt 126.1 kg
[~2020-12-22 13:59] MED LIST changes: +HYDROCODON-ACE1 EAC8 PO
[2020-12-22 15:20] VITALS: BP 146/88
== END 2020-12-22 15:21 | disposition home or self-care (01) ==
LOC: M.ERS 13:59
DX: U07.1 COVID-19 (principal); I10 Essential (primary) hypertension; F17.210 Nicotine dependence, cigarettes, uncomplicated; Z88.8 Allergy status to other drugs, medicaments and biological substances

== ENCOUNTER 2021-04-25 10:31 | Emergency (ER) | payer OTHER ==
[~2021-04-25] VITALS: Ht 180.3 cm; Wt 124.7 kg
[2021-04-25 11:24] LABS: ABSOLUTE EOSINOPHILS 0.2 thou/uL (0.0-0.7); ABSOLUTE LYMPHOCYTES 1.1 thou/uL (0.8-5.3); ABSOLUTE MONOCYTES 0.5 thou/uL (0.0-1.2); ABSOLUTE NEUTROPHILS 8.1 thou/uL (1.6-8.1); BASOPHILS 0.3 %; EOSINOPHILS 2.1 %; HEMATOCRIT 48.4 % (42.0-52.0); HEMOGLOBIN 16.1 gm/dL (14.0-18.0); LYMPHOCYTES 11.1 %; MCH 27.4 pg (26.0-34.0); MCHC 33.2 g/dL (28.0-37.0); MCV 82.5 fL (80.0-100.0); MONOCYTES 4.7 %; MPV 7.7 fl. (7.2-11.1); NUCLEATED RBCS 0 /100WBC; PLATELET COUNT* 257 thou/uL (150-400); POLYS 81.8 %; RBC 5.86 mil/uL (4.50-6.00); RDW-CV 13.7 % (10.5-14.5); WBC 9.9 thou/uL (4.0-11.0)
[2021-04-25 11:49] LABS: ALBUMIN 3.8 g/dL (3.4-5.0); CALCIUM 8.7 mg/dL (8.5-10.1); MAGNESIUM 2.3 mg/dL (1.8-2.4); POTASSIUM 4.3 mmol/L (3.5-5.1); TOTAL BILIRUBIN 0.5 mg/dL (<0.1-1.0); TOTAL PROTEIN 8.3 g/dL (6.4-8.2)
[2021-04-25] MEDS ORDERED: FLEXERIL PO (12:52)
[2021-04-25] MEDS ORDERED: ZOFRAN ODT4 MG DISSOLVE (12:52)
[2021-04-25 13:27] VITALS: BP 130/85
--- NOTE | 2021-04-26 14:13 | EKG ---
[place] [address] ELECTROCARDIOGRAM REPORT Name: KEYLA KHAN Room: [facility]#: [id number] Admission: 04/25/21 Attend Phys: Discharge: 04/25/21 Date of : [birth year] Date of Service: 04/25/21 1036 Report #: [id number] THIS REPORT FOR: //name// [facility] ED Test Date: 2021-04-25 Test Time: 10:36:07 Pat Name: KEYLA KHAN Department: Room: Gender: Aix Administrator: [facility] : 1995 Requested By: Hussain Mcnulty Order Number: [id number] MD: Jaquan Rodriguez Measurements Intervals [place] Rate: 101 P: 65 [place]: 147 QRS: 45 QRSD: 84 T: -1 QT: 304 QTc: 394 Interpretive Statements Sinus tachycardia Borderline T wave abnormalities Compared to ECG 12/12/2020 21:28:14 Sinus rate has increased T-wave abnormality still present Electronically Signed On 04-26-2021 14:13:18 ASSEMBLER TESTER by Jaquan Rodriguez [email or web address] <ELECTRONICALLY SIGNED> By: Jaquan Rodriguez MD, [facility] 04/26/21 1413 1036 1036 Jaquan Rodriguez MD, [facility] /EPI
== END 2021-04-25 13:27 | disposition home or self-care (01) ==
LOC: M.ERS 10:31
PROVIDERS: Emergency Medicine Emergency Medical Services
DX: F07.81 Postconcussional syndrome (principal); R07.89 Other chest pain; R10.84 Generalized abdominal pain; F41.9 Anxiety disorder, unspecified; F90.9 Attention-deficit hyperactivity disorder, unspecified type; F32.9 Major depressive disorder, single episode, unspecified; I10 Essential (primary) hypertension; G47.30 Sleep apnea, unspecified; F17.210 Nicotine dependence, cigarettes, uncomplicated; Z79.899 Other long term (current) drug therapy; Z88.5 Allergy status to narcotic agent; Z88.8 Allergy status to other drugs, medicaments and biological substances; V89.2XXA Person injured in unspecified motor-vehicle accident, traffic, initial encounter; Y93.89 Activity, other specified; Y92.89 Other specified places as the place of occurrence of the external cause; Y99.8 Other external cause status